=== PATIENT | male | born 1955 | race Hispanic/Latino ===

== ENCOUNTER 2023-01-13 06:07 | Day surgery (SDC) | payer OTHER ==
[~2023-01-13] VITALS: Ht 170.2 cm; Wt 97.1 kg
[2023-01-13] VITALS (10 sets, daily range): BP systolic 95–162; BP diastolic 55–84; PULSE 52–68; RESP 14–18
[~2023-01-13 06:07] MED LIST: AEC81 PO; AMLO-258 PO; ATOR20TA65 PO; CAND1TAB19 PO; HYDR100T27 PO; METO100T14 PO; POTA-364 PO; SITA1TAB6 PO
[2023-01-13] MEDS ORDERED: PROPOFOL 10 MG/ML 20ML VIAL IV ONE (08:33)
[2023-01-13] MEDS ORDERED: MIDAZOLAM HCL 1 MG/ML 2ML VIAL ONE (08:33)
[2023-01-13] MEDS ORDERED: KETAMINE 50MG/ML SYRINGE 50 MG/ML DISP.SYRIN ONE (08:34)
== END 2023-01-13 10:25 | disposition home or self-care (01) ==
LOC: ENDO 06:07 → DAH 06:07 → ENDO 10:25
PROVIDERS: ATTEND Internal Medicine Gastroenterology
DX: R93.3 Abnormal findings on diagnostic imaging of other parts of digestive tract (principal); K29.50 Unspecified chronic gastritis without bleeding; K29.80 Duodenitis without bleeding; I10 Essential (primary) hypertension; E11.9 Type 2 diabetes mellitus without complications; E78.00 Pure hypercholesterolemia, unspecified; K76.0 Fatty (change of) liver, not elsewhere classified; K42.9 Umbilical hernia without obstruction or gangrene; Z79.01 Long term (current) use of anticoagulants; Z79.899 Other long term (current) drug therapy; Z86.73 Personal history of transient ischemic attack (TIA), and cerebral infarction without residual deficits; Z72.89 Other problems related to lifestyle; Z90.49 Acquired absence of other specified parts of digestive tract; Z79.82 Long term (current) use of aspirin
CPT/HCPCS: 43251; 82948 ×2; 43239; J2250; J2704; J3490; A4620; A4215 ×3; A4223; A7002; A4222; A4221; A4663; A4216; J7030; A4606